=== PATIENT | female | born 1960 | race Two or more races ===

== ENCOUNTER 2018-04-12 13:14 | Day surgery (SDC) | payer OTHER, MEDICAID ==
[~2018-04-12 13:14] MED LIST: EPHEDrine SULFATE 50 MG/5 ML SYG; SEVOFLURANE 15 MIN
[2018-04-12] MEDS ORDERED: MEPERIDINE 100 MG INJ (14:31)
[2018-04-12] MEDS ORDERED: ONDANSETRON 4 MG INJ (15:50)
[2018-04-12] MEDS ORDERED: METOCLOPRAMIDE 10 MG INJ (15:50)
[2018-04-12] MEDS ORDERED: PROPOFOL 20 ML (15:50)
[2018-04-12] MEDS ORDERED: CEFAZOLIN 1 GM INJ (15:50)
[2018-04-12] MEDS ORDERED: LIDOCAINE 2% (SDV) 5 ML INJ (15:50)
[2018-04-12] MEDS: BUPIVACAINE 0.25% (MPF) 30 ML INJ (16:27)
[2018-04-12] MEDS: FENTAnyl 50 MCG/ML VIAL IV ×2 (17:57→18:06)
[2018-04-12] MEDS: ONDANSETRON 4 MG INJ IV (17:58)
[2018-04-12] MEDS: MEPERIDINE 25 MG INJ IV (17:58)
[2018-04-12] MEDS ORDERED: MIDAZOLAM 1 MG/ML 2 ML INJ IV (18:00)
[2018-04-12] MEDS ORDERED: DIPHENHYDRAMINE 50 MG INJ IV (18:00)
[2018-04-12] MEDS ORDERED: OXYCODONE/ACETAMINOPHEN (5/325) TAB PO (18:00)
[2018-04-12] MEDS ORDERED: METOCLOPRAMIDE 10 MG INJ IV (18:00)
[2018-04-12] MEDS ORDERED: FENTAnyl 50 MCG/ML VIAL IV ×2 (18:00)
[2018-04-12] MEDS: OXYCODONE/ACETAMINOPHEN (5/325) TAB PO (19:08)
== END 2018-04-12 19:23 | disposition home or self-care (01) ==
LOC: SDS 13:14
DX: M72.0 Palmar fascial fibromatosis [Dupuytren] (principal)
CPT/HCPCS: 26121; 88304